=== PATIENT | female | born 1995 | race Caucasian/White ===

== ENCOUNTER 2025-02-27 12:26 | Outpatient (CLI) | payer BC, SELFPAY | END 2025-02-27 13:08 | disposition home or self-care (01) | LOC: WPOUT 12:27 → WP 12:28 | PROVIDERS: Referring Provider Obstetrics & Gynecology; Visit Provider Obstetrics & Gynecology | DX: R63.30 Feeding difficulties, unspecified (principal) | CPT/HCPCS: 96158 ==

== ENCOUNTER 2025-04-17 19:21 | Inpatient (IN) | payer BC, SELFPAY ==
[2025-04-17 19:18] VITALS: BMI 24.4
[2025-04-17 19:30] VITALS: BP 135/72; PULSE 82
[2025-04-17 19:33] VITALS: RESP 16; TEMP 36.7
[2025-04-17 20:14] LABS: Hematocrit 38.1 % (37-47); Hemoglobin 13.8 g/dL (12.0-15.0); Immature Granulocytes Count 0.040 X10^3/uL (0.0-0.0); Mean Corp Hgb Conc 36.2 g/dL (32-36); Mean Corpuscular Volume 86.2 fL (81-99); Mean Platelet Vol. 10.5 fl (6.2-12.0); NRBC Flagged by Analyzer 0 % (0-5); Platelet Count 250 K/mm3 (150-450); RBC Distribution Width CV 11.9 % (11.6-14.6); RBC Distribution Width SD 37.1 fl (35.1-43.9); Red Blood Count 4.42 M/mm3 (4.2-5.4); White Blood Count 10.3 K/mm3 (4.4-11.0)
[2025-04-17] MEDS: 0.9% Normal Saline Single 100 ML IV.SOLN. INTRA-UTER (20:37)
--- NOTE | 2025-04-17 20:39 | HP.PCM.OB_ITS ---
HPI - General General Date of Admission: 04/17/25 Date of Service: 04/17/25 HPI Narrative DEB ZAPATA, is a 30 F who presents for induction. Maternal Data Information RHETT Calculator Estimated Delivery Date Method Current WG Current Estimate 04/24/25 Manual 39w 0d PFSH [facility] Medical History Thyroid disorder Gestational diabetes Home Medications ?Medication ?Instructions ?Recorded ?Last Taken ?Type levothyroxine 50 mcg tablet 50 mcg PO DAILY hypothyroi d 04/17/25 04/17/25 08:00 History Allergy/AdvReac Type Severity Reaction Status Date / Time No Known Allergies Allergy Verified 04/17/25 19:40 Surgical History History of surgery Social History Smoking Status: Never smoker History Elective abortions Hx Para 0 Spontaneous abortions Hx # Term Pregnancies Ectopic pregnancies Hx # Pregnancies Multiple births # of living children NST FHR Rate Baby A Baseline: 145 Variability:: Moderate Accelerations:: 15 x 15 Decelerations:: None Uterine Activity:: Irregular Vital Signs Vital Signs Vital Signs: 04/17/25 19:30 04/17/25 19:30 04/17/25 19:33 Temperature Temperature Source Temporal Pulse Rate 82 Respiratory Rate Blood Pressure 135/72 H BP Systolic 135 BP Diastolic 72 04/17/25 19:33 04/17/25 19:33 Temperature 98.0 F Temperature Source Pulse Rate Respiratory Rate 16 Blood Pressure BP Systolic BP Diastolic Weight Weight: 170 lb 3.15 oz Body Mass Index (BMI) 24.4 Physical Exam Const alert, oriented x3 and no apparent distress Chest inspection of chest normal Resp normal respiratory effort GI soft to palpation, non-tender and non-distended Inspection: gravid external exam normal Narrative: cvx - 1/50/-2, intracervical carias placed Labs Labs Labs: Blood Type Pending Antibody Screen Pending Hct 38.1 % (37-47) Hgb 13.8 g/dL (12.0-15.0) Syphilis Total Ab Pending Assessment & Plan (1) Diet controlled gestational diabetes mellitus (GDM) in third trimester: COMMENT: (2) 39 weeks gestation of : (3) Polyhydramnios in third trimester: QUALIFIERS: Fetus number: single or unspecified fetus Qualified Code(s): O40.3XX0 - Polyhydramnios, third trimester, not applicable or unspecified COMMENT: Mild PLAN: Plan Admit to L&D. Induction - intracervical carias placed and will start pitocin. EFW - less than 4500g and patient with adequate pelvis. Last US showed mild polyhydramnios (KENNETH=27.8) and AC at 93%. GBS negative. Pain - epidural as desired.
[2025-04-17 20:42] LABS: Syphilis Antibodies Nonreactive (Nonreactive)
[2025-04-18] VITALS (56 sets, daily range): BP systolic 112–163; BP diastolic 58–111; PULSE 56–150; RESP 15–18; TEMP 36.1–36.9; O2SAT 94–100
[2025-04-18] MEDS: 0.9% Saline Lock 10 ML Syringe IV ×2 (02:17→04:48)
[2025-04-18] MEDS: Lactated Ringers 1,000 ML 50 ML IV (02:17)
[2025-04-18] MEDS: Oxytocin 15 Units/NS 250ml 15 UNITS/250 ML IV.SOLN 2 UNITS IV (02:21)
[2025-04-18] MEDS: Lactated Ringers 1,000 ML 999 ML IV (04:27)
[2025-04-18] MEDS: fentaNYL-bupivacaine (epidural) 100 ML BAG EPIDURAL ×2 (05:36→09:34)
--- NOTE | 2025-04-18 08:34 | PN.OBGYN_ITS ---
Subjective Subjective Patient seen at bedside. Comfortable with epidural. Objective Data Objective Data Vital Signs: Vital Signs Temp Pulse Resp BP Pulse Ox 97.6 F L 65 16 132/79 H 98 04/18/25 07:18 04/18/25 08:30 04/18/25 07:18 04/18/25 08:30 04/18/25 07:18 Weight: 170 lb 3.15 oz Body Mass Index (BMI) 24.4 Intake & Output: Intake and Output for Last 24 Hours 04/16/25 04/17/25 04/18/25 23:59 23:59 23:59 Intake Total 1179.63 / 1179.63 Output Total 500 / 500 Balance 679.63 / 679.63 Lab / Micro Data 04/17/25 20:00 Labs: Laboratory Results - last 24 hr 04/17/25 20:00: WBC 10.3, RBC 4.42, Hgb 13.8, Hct 38.1, MCV 86.2, MCH 31.2, MCHC 36.2 H, RDW Std Deviation 37.1, RDW Coeff of Teresita 11.9, Plt Count 250, MPV 10.5, Immature Gran % (Auto) 0.400, Neut % (Auto) 73.5 H, Lymph % (Auto) 20.0, Callahan % (Auto) 5.4, Eos % (Auto) 0.4, Baso % (Auto) 0.3, Absolute Neuts (auto) 7.6, Absolute Lymphs (auto) 2.06, Nucleated RBC % 0, Syphilis Total Ab Nonreactive, Blood Type O POSITIVE, Antibody Screen NEGATIVE 04/17/25 20:27: POC Glucose 101 04/17/25 21:39: POC Glucose 85 04/18/25 01:16: POC Glucose 87 04/18/25 05:20: POC Glucose 82 Assessment & Plan (1) Polyhydramnios in third trimester: QUALIFIERS: Fetus number: single or unspecified fetus Qualified Code(s): O40.3XX0 - Polyhydramnios, third trimester, not applicable or unspecified COMMENT: Mild (2) 39 weeks gestation of : (3) Diet controlled gestational diabetes mellitus (GDM) in third trimester: COMMENT: (4) Encounter for induction of labor: PLAN: Plan GBS negative CE /-2 AROM for moderate amount of clear/bloody fluid Pitocin at 8 mu/min NST reactive, Contractions every 1-3 minutes Anticipate
[2025-04-18] MEDS: Lactated Ringers 1,000 ML 200 ML IV (10:35)
--- NOTE | 2025-04-18 12:18 | EX.PCM.OBVAG ---
Assessment & Plan (1) (spontaneous vaginal delivery): (2) Laceration, obstetrical, second degree: Maternal Data Information RHETT Calculator Estimated Delivery Date Method Current WG Current Estimate 04/24/25 Manual 39w 1d Vaginal Delivery Maternal Presentation Maternal Presentation: Medically Indicated Induction Maternal Presentation: at 39 weeks gestation for medical induction of labor for GDM A1, Polyhydramnios. Type of Induction: Pitocin, Colon Bulb, Amniotomy and Cytotec Medical Reason for Induction: Maternal Medical Condition: list: (GDM A1, Polyhydramnios) Vaginal Delivery Information Procedure Performed: Spontaneous Vaginal Delivery Surgeon/Practitioner: Josy Melgar Date of Procedure: 04/18/25 Pre-Procedure Diagnosis: Term gestation, Induction of labor Post-Procedure Diagnosis: , Live male infant Type of anesthesia: Epidural Estimated Blood Loss: 250 Time of Delivery: 11:43 Findings Description of procedure: Patient progressed to complete dilation. With good maternal effort, head delivered with left arm/hand up by face, followed by anterior shoulder and remainder of infant body without any force, delay, or traction. Vigorous male was delivered atraumatically and placed on maternal abdomen. Pitocin IV started for active management of the third stage of labor. 3 vessel cord clamped and cut after delay and placed immediately skin to skin with patient. Placenta delivered spontaneously and intact. A () laceration was repaired in usual fashion using 3-0 Vicryl Rapid. Hemostasis obtained. Vaginal sweep performed. Fundus is firm 2 below U and bleeding is hemostatic. Sponge and sharps counts correct. Patient and infant bonding well at this time. Dr. Cleveland notified of delivery. Routine post orders placed. 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
[2025-04-18] MEDS: Oxytocin 15 Units/NS 250ml 15 UNITS/250 ML IV.SOLN 83 UNITS IV (12:20)
[2025-04-19] VITALS (7 sets, daily range): BP systolic 119–130; BP diastolic 60–70; PULSE 65–80; RESP 14–16; TEMP 36.3–36.7; O2SAT 96–98
--- NOTE | 2025-04-19 08:50 | PCM.PN.OB ---
Subjective Subjective Doing well. Ambulating and voiding without difficulty. Mild lochia. Breast feeding. Objective Data Objective Data Vital Signs: Vital Signs Temp Pulse Resp BP Pulse Ox O2 Del Method 97.4 F L 65 16 119/67 97 Room Air 04/19/25 04:54 04/19/25 08:12 04/19/25 04:54 04/19/25 08:12 04/19/25 04:54 04/19/25 04:54 Oxygen Delivery Method Room Air Weight: 77.2 kg Body Mass Index (BMI) 24.4 Intake & Output: Intake and Output for Last 24 Hours 04/17/25 04/18/25 04/19/25 23:59 23:59 23:59 Intake Total 2729.77 / 2729.77 Output Total 3950 / 3950 Balance -1220.23 / -1220.23 Lab / Micro Data 04/17/25 20:00 Labs: Laboratory Results - last 24 hr 04/18/25 08:59: POC Glucose 92 04/18/25 10:24: POC Glucose 92 04/18/25 11:16: POC Glucose 79 04/18/25 13:24: POC Glucose 100 04/19/25 06:53: POC Glucose 91 ROS Constitutional Constitutional: Denies headache(s) Cardiovascular Cardiovascular: Denies chest pain or dyspnea Gastrointestinal Gastrointestinal: Denies nausea or vomiting Genitourinary Genitourinary: Denies dysuria Physical Exam Const alert, oriented x3 and no apparent distress General Appearance: cooperative and comfortable Eyes PERRL and EOMs intact bilaterally Resp normal respiratory effort GI soft to palpation and non-tender Uterus Palpation: uterus fundus firm ( below umbilicus) Extremity normal to inspection and full ROM Neuro oriented x3 and CN's II-XII intact bilaterally Psych mental status grossly normal Assessment & Plan (1) (spontaneous vaginal delivery): (2) Diet controlled gestational diabetes mellitus (GDM) in third trimester: COMMENT: PLAN: Plan Discharge home
--- NOTE | 2025-04-19 08:51 | PCM.DC.SUM ---
Providers Date of Admission: 04/17/25 Date of Discharge: 04/19/25 Primary Care Physician: Génesis Primary Care Phys Reason For Visit: VAGINAL DELIVERY Diagnosis Discharge Diagnosis (1) (spontaneous vaginal delivery): Status: Acute Code(s): O80 - Encounter for full-term uncomplicated delivery (2) Diet controlled gestational diabetes mellitus (GDM) in third trimester: Status: Acute Code(s): O24.410 - Gestational diabetes mellitus in , diet controlled Plan Discharge home Medications at Discharge Home Medications levothyroxine 50 mcg tablet 50 mcg PO DAILY hypothyroid 04/17/25 Hospital Course Operations None Procedures None Summary of Care Provided Minutes Spent on Discharge: 20 Hospital Course: uncomplicated . Breast feeding Physical Exam Const alert and no apparent distress Narrative: Fundus firm, below umbilicus. Weight / BMI Weight Weight: 77.2 kg Body Mass Index (BMI) 24.4 ABG / Lab / Microbiology Data 04/17/25 20:00 Laboratory: Laboratory Results - last 24 hr 04/18/25 08:59: POC Glucose 92 04/18/25 10:24: POC Glucose 92 04/18/25 11:16: POC Glucose 79 04/18/25 13:24: POC Glucose 100 04/19/25 06:53: POC Glucose 91 D/C Instructions May resume sexual activity in: 6 weeks DC O2, CPAP, BIPAP Needs Home O2 Discharge instructions: No Please Follow Up With: Alina Cleveland MD When: Follow up with our office in 1-2 and 6 weeks or as needed. [phone] Meaningful Use Info Meaningful Use Meaningful Use Diagnoses (Choose all that apply): None applicable Ischemic Stroke Statin Dosing Therapy Reference: STATIN DOSE THERAPY REFERENCE: * Patients > 75 years receive moderate or high dose statin therapy. * Patients 75 years or YOUNGER should receive HIGH intensity statin dose unless contraindicated. You will be required to document reason for non-treatment if statin daily dose does not meet guidelines. HIGH DOSE STATIN THERAPY DAILY Atorvastatin > than or = to 40 mg Rosuvastatin > than or = to 20 mg Amlodipine + Atorvastatin > than or = to 2.5/40 mg Ezetimibe + Simvastatin 10/80 mg Simvastatin 80mg Discharge Plan Admission Admit Date/Time: 04/17/25 19:21 Primary Reason for Your Visit: labor Attending Provider: Josy Melgar Primary Care Provider: Care Physician,No Primary Discharge Orders/Prescriptions Prescriptions: Continued levothyroxine 50 mcg tablet 50 mcg PO DAILY Referrals / Follow Up: Care Physician,No Primary [Primary Care Provider] - Disposition Disposition (needs filled in before D/C Order can be placed): Home, Self Care
--- NOTE | 2025-04-23 20:01 | NURSING ---
F/Up Phone Call questions asked during IBCLC visit today. Pt. reports feeling well. Denies pain, vision changes, headaches, or issues with lochia. No s+s reported of complications. going well, using nipple shield and milk is in.
== END 2025-04-19 14:58 | disposition home or self-care (01) | DRG 807 ==
PROVIDERS: Obstetrics & Gynecology; Admitting Provider Advanced Practice Midwife; Referring Provider Advanced Practice Midwife; Visit Provider Advanced Practice Midwife
DX: O24.420 Gestational diabetes mellitus in childbirth, diet controlled (principal); Z37.0 Single live birth; O40.3XX0 Polyhydramnios, third trimester, not applicable or unspecified; E03.9 Hypothyroidism, unspecified; O70.1 Second degree perineal laceration during delivery; O99.284 Endocrine, nutritional and metabolic diseases complicating childbirth; Z3A.39 39 weeks gestation of pregnancy; Z79.890 Hormone replacement therapy
CPT/HCPCS: 59025; 59050; 82962; 85025; 86780; 86850; 86900; 86901; 99221; A4216; G0378; J2405